=== PATIENT | male | born 1985 | race Caucasian/White ===

== ENCOUNTER 2024-12-25 18:33 | Emergency (ER) | payer OTHER, SELFPAY ==
--- NOTE | ~2024-12-25 | XR_ITS ---
XR ankle RT min 3V, XR foot RT min 3V 12/25/2024 19:24 Indication: Right ankle and foot pain Procedure: 4 views right ankle and 4 views right foot Comparison: No prior studies for comparison. Findings: There is a minimally displaced intra-articular fracture fifth proximal phalanx involving the MTP joint. There is moderate soft tissue swelling at the lateral malleolus. Lisfranc joint intact. Ankle mortise intact. Talar dome is normal. No other fractures. Impression: 1: Minimally displaced intra-articular fracture right fifth proximal phalanx. Reviewed, dictated and finalized at location O. Impression: 1: Minimally displaced intra-articular fracture right fifth proximal phalanx. Impression: 1: Minimally displaced intra-articular fracture right fifth proximal phalanx.
--- NOTE | ~2024-12-25 | XR_ITS ---
XR hip BI 2V w AP pelvis 12/25/2024 19:24 INDICATION: Status post fall. PROCEDURE: AP pelvis and 2 views each hip COMPARISON: No prior studies for comparison. FINDINGS: Fracture, dislocation or subluxation is not identified. Pelvic rings intact. The soft tissues appear within normal limits. No foreign bodies are identified. IMPRESSION: 1: NO ACUTE BONE OR JOINT ABNORMALITY IDENTIFIED. Reviewed, dictated and finalized at location O.
--- NOTE | ~2024-12-25 | XR_ITS ---
XR lumbar spine 2-3V 12/25/2024 19:24 Indication: Status post fall from 15 feet Procedure: 3 views lumbar spine Comparison: No prior studies for comparison. Findings: Vertebral body heights are maintained. Mild disc narrowing at L5-S1. No acute fracture, subluxation or dislocation. Pedicles intact. Sacral foramen are symmetric. There are cholecystectomy clips. Impression: 1: No acute abnormality of the lumbar spine. Reviewed, dictated and finalized at location O. Impression: 1: No acute abnormality of the lumbar spine.
--- NOTE | ~2024-12-25 | XR_ITS ---
XR knee RT min 4V 12/25/2024 19:24 INDICATION: Right knee pain PROCEDURE: 5 views right knee COMPARISON: No prior studies for comparison. FINDINGS: Fracture, dislocation or subluxation is not identified. The soft tissues appear within normal limits. No foreign bodies are identified. IMPRESSION: 1: NO ACUTE BONE OR JOINT ABNORMALITY IDENTIFIED. Reviewed, dictated and finalized at location O.
[2024-12-25 18:47] VITALS: BP 140/91; PULSE 113; RESP 16; TEMP 36.8; O2SAT 99
--- NOTE | 2024-12-25 18:56 | ED.GENADULT ---
HPI - General Adult General Chief complaint: Extremity Injury, Lower Stated complaint: INJURED R KNEE/ANKLE/TOES Source: patient Mode of arrival: ambulatory Limitations: no limitations History of Present Illness HPI narrative: Patient presents for evaluation after experiencing a fall at approximately 3:00 p.m. today. 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 The fall was approximately 15 feet and he landed on his right foot, and then fell to the ground. He was able to hug the tree on his way down and has some superficial abrasions from that. He did not hit his head. No loss of consciousness. He is not on blood thinners. He now has pain in the right knee, ankle and foot. He reports any pain is 5/10 in severity and ankle and foot pain as 7/10 severity. He has numbness and tingling in the 4th and 5th digits of the right foot. He has not taken any medication for his pain. He is not diabetic. His tetanus is up-to-date. Related Data Home Medications ?Medication ?Instructions ?Recorded ?Confirmed ?Last Taken ?Type No Home Medications 12/25/24 12/25/24 Unknown History Allergies Allergy/AdvReac Type Severity Reaction Status Date / Time No Known Allergies Allergy Verified 12/25/24 18:48 Review of Systems Review of Systems: CONSTITUTIONAL: Denies fever, chills, or sweats. EYES: Denies visual changes, redness, or discharge. ENT: Denies rhinorrhea, congestion, sore throat, or otalgia. CARDIOVASCULAR: Denies chest pain, palpitations, or edema. RESPIRATORY: Denies cough or dyspnea. GASTROINTESTINAL: Denies abdominal pain, nausea, vomiting, or diarrhea. GENITOURINARY: Denies dysuria or hematuria. SKIN: reports abrasions to the bilateral forearms MUSCULOSKELETAL: Reports pain in the right knee, right ankle, right foot NEUROLOGIC: Denies headache, numbness, dizziness, or weakness. PSYCHIATRIC: Denies anxiety or depression. [facility] Past Medical History Medical History No pertinent past medical history Surgical History Surgical History Past surgical history of mastectomy Family History Family History Mother Family history non-contributory Social History Social History Substance use: never Living arrangements: with family Gender identity (if verbalized by the patient): Male Sexual Orientation (if Verbalized by the Patient): Straight or Heterosexual Spiritual care concerns: No Exam Narrative: GENERAL: Well-appearing, well-nourished, and in no acute distress. HEAD: Normocephalic, atraumatic. EYES: PERRLA and EOMI. ENT: Nares clear, no rhinorrhea or epistaxis. Mucous membranes moist. Oropharynx without tonsillar hypertrophy exudate or other lesions. Bilateral TMs pearly sher nonbulging NECK: Supple. No adenopathy or masses. No carotid bruits or JVD CHEST: Clear to auscultation. No respiratory distress. No wheezes rales or rhonchi HEART: Regular rate and rhythm. No murmur heard. Normal peripheral pulses. ABDOMEN: Soft, nontender, nondistended, normal active bowel sounds. EXTREMITIES: full range of motion of the right knee. No crepitus or deformity. Mild tenderness in the medial aspect of the right knee. Able to dorsi and plantar flex right foot but does so with hesitancy secondary to pain. Is tenderness in the anteromedial aspect of the right ankle. There is tenderness in the 4th and 5th digits of the right foot. SKIN: Warm, dry, no rash. NEURO: No focal deficits. Alert and oriented x3. PSYCH: Normal mood and affect. Course Course Emergency Course: This is a 39-year-old male who presented for evaluation after falling out of a tree. X-rays were negative for fracture other than that of his foot which showed a proximal phalanx fracture of the 5th digit of the right foot. Fourth and 5th toes were leonel-taped. He declined knee immobilizer. He ready has an ankle splint available at home. He was provided with crutches. He was advised on RICE therapy. Ibuprofen for pain. He should follow up with orthopedics is coming week and go to the ER for intractable pain. Patient in agreement with plan of care. Level of Care: Express Care Visit Vital Signs Vital signs: Vital Signs Temperature 36.8 C 12/25/24 18:47 Pulse Rate 113 H 12/25/24 18:47 Respiratory Rate 16 12/25/24 18:47 Blood Pressure 140/91 H 12/25/24 18:47 Pulse Oximetry 99 12/25/24 18:47 Temperature 36.8 C 12/25/24 18:47 Pulse Rate 113 H 12/25/24 18:47 Respiratory Rate 16 12/25/24 18:47 Blood Pressure 140/91 H 12/25/24 18:47 Pulse Oximetry 99 12/25/24 18:47 Medical Decision Making Vital Signs Vital Signs: Vital Signs Temperature 36.8 C 12/25/24 18:47 Pulse Rate 113 H 12/25/24 18:47 Respiratory Rate 16 12/25/24 18:47 Blood Pressure 140/91 H 12/25/24 18:47 Pulse Oximetry 99 12/25/24 18:47 Temperature 36.8 C 12/25/24 18:47 Pulse Rate 113 H 12/25/24 18:47 Respiratory Rate 16 12/25/24 18:47 Blood Pressure 140/91 H 12/25/24 18:47 Pulse Oximetry 99 12/25/24 18:47 Imaging Data Radiologist's impression: XR lumbar spine 2-3V 12/25/2024 19:24 Indication: Status post fall from 15 feet Procedure: 3 views lumbar spine Comparison: No prior studies for comparison. Findings: Vertebral body heights are maintained. Mild disc narrowing at L5-S1. No acute fracture, subluxation or dislocation. Pedicles intact. Sacral foramen are symmetric. There are cholecystectomy clips. Impression: 1: No acute abnormality of the lumbar spine. XR ankle RT min 3V, XR foot RT min 3V 12/25/2024 19:24 Indication: Right ankle and foot pain Procedure: 4 views right ankle and 4 views right foot Comparison: No prior studies for comparison. Findings: There is a minimally displaced intra-articular fracture fifth proximal phalanx involving the MTP joint. There is moderate soft tissue swelling at the lateral malleolus. Lisfranc joint intact. Ankle mortise intact. Talar dome is normal. No other fractures. Impression: 1: Minimally displaced intra-articular fracture right fifth proximal phalanx. XR hip BI 2V w AP pelvis 12/25/2024 19:24 INDICATION: Status post fall. PROCEDURE: AP pelvis and 2 views each hip COMPARISON: No prior studies for comparison. FINDINGS: Fracture, dislocation or subluxation is not identified. Pelvic rings intact. The soft tissues appear within normal limits. No foreign bodies are identified. IMPRESSION: 1: NO ACUTE BONE OR JOINT ABNORMALITY IDENTIFIED. XR knee RT min 4V 12/25/2024 19:24 INDICATION: Right knee pain PROCEDURE: 5 views right knee COMPARISON: No prior studies for comparison. FINDINGS: Fracture, dislocation or subluxation is not identified. The soft tissues appear within normal limits. No foreign bodies are identified. IMPRESSION: 1: NO ACUTE BONE OR JOINT ABNORMALITY IDENTIFIED. Discharge Plan Discharge Clinical Impression: Abrasion of arm, left, Abrasion of arm, right, Strain of right knee, Right ankle sprain, Fracture of proximal phalanx of toe of right foot Patient Disposition: Home Condition: Stable Instructions: Antibiotic Form, Ankle Sprain (ED), Toe Fracture (ED), Abrasion (ED), Knee Pain (ED) Additional Instructions: Wash abrasions 3 times daily with antibacterial soap and water Pat dry Apply Neosporin Use crutches as needed for ambulation Apply ice to foot, ankle and knee as needed Ibuprofen should help with pain and swelling Please follow-up with orthopedics next week Patient Language: Macedonian Prescriptions: No Action No Home Medications Follow-up/Referrals: Avel Henderson MD [Physician, Orthopedics] Time of Disposition: 19:54
--- NOTE | 2024-12-25 19:02 | PC.NURSE ---
1902 taken to xray via wheelchair, patient awake and alert; right leg elevated on wheelchair.
== END 2024-12-25 20:01 | disposition home or self-care (01) ==
PROVIDERS: Emergency Provider Nurse Practitioner
DX: S50.812A Abrasion of left forearm, initial encounter (principal); S50.811A Abrasion of right forearm, initial encounter; S86.911A Strain of unspecified muscle(s) and tendon(s) at lower leg level, right leg, initial encounter; S93.401A Sprain of unspecified ligament of right ankle, initial encounter; S92.511A Displaced fracture of proximal phalanx of right lesser toe(s), initial encounter for closed fracture; W17.89XA Other fall from one level to another, initial encounter
CPT/HCPCS: 72100; 73521; 73564; 73610; 73630; 99214; G0463; L1830